=== PATIENT | male | born 1975 | race Caucasian/White ===

== ENCOUNTER 2016-09-30 20:35 | Emergency (ER) | payer SELFPAY ==
[~2016-09-30] VITALS: Ht 160 cm; Wt 77.6 kg
[2016-09-30 21:20] VITALS: BP 125/66
--- NOTE | 2016-09-30 22:23 | NUR ---
PT TAKEN TO BED 4
--- NOTE | 2016-09-30 22:54 | NUR ---
Dr. Bo evaluating patient at bedside.
--- NOTE | 2016-09-30 22:57 | NUR ---
APATIENT PRESENTS TO ED WITH BL GROIN PAIN X1WEEK . PT STATES HE HAS A PAIN IN HIS PENIS WELL WITH REDNESS AND PEELING. PT REPORTS EVERY MORNING WHEN HE WAKES UP, HE HAS A WHITE COVERING OVER HIS TONGUE . DENIES N/V/D; SKIN IS PINK/WARM/DRY; AAOX4 WITH EVEN AND STEADY GAIT; LUNGS CLEAR BL; HR EVEN AND REGULAR; PT DENIES ANY FEVER, CP, SOB, OR COUGH AT THIS TIME; PATIENT STATES PAIN OF 10/10 AT THIS TIME; VSS; PATIENT POSITIONED FOR COMFORT; HOB ELEVATED; BEDRAILS UP X2; BED DOWN. ER MD MADE AWARE OF PT STATUS.
--- NOTE | 2016-10-01 00:16 | NUR ---
Patient appears to be resting comfortably in bed. Vital Signs within normal limits. Respirations even and unlabored.
--- NOTE | 2016-10-01 01:29 | NUR ---
Patient appears to be resting comfortably in bed. Vital Signs within normal limits. Respirations even and unlabored. GAVE URINE AND ALLOWED FOR NASAL FLU SWAB TO BE DRAWN
--- NOTE | 2016-10-01 04:22 | NUR ---
Patient appears to be resting comfortably in bed. Vital Signs within normal limits. Respirations even and unlabored. PT CURRENTLY SLEEPING IN BED
[2016-10-01] MEDS ORDERED: cefTRIAXone 250 MG in LIDOCAINE 1% ED 0.9 ML IM ONE (04:45)
[2016-10-01] MEDS ORDERED: PENICILLIN G BENZATHINE L-A 2.4 MU/4 ML SYR IM ONE (04:45)
[2016-10-01 05:30] VITALS: BP 118/73
--- NOTE | 2016-10-01 05:50 | NUR ---
Patient discharged with v/s stable. Written and verbal after care instructions given and explained. Patient alert, oriented and verbalized understanding of instructions. Ambulatory with steady gait. All questions addressed prior to discharge. ID band removed. Patient advised to follow up with PMD. Rx of NYSTATIN AND AZITHROMYCIN 250MG given. Patient educated on indication of medication including possible reaction and side effects. Opportunity to ask questions provided and answered.
== END 2016-10-01 05:50 | disposition home or self-care (01) ==
LOC: MED 20:35
PROC: 3E033GC Introduction of Other Therapeutic Substance into Peripheral Vein, Percutaneous Approach (ICD-10-PCS; principal; 2016-09-30)
PROC: 4A02X4Z Measurement of Cardiac Electrical Activity, External Approach (ICD-10-PCS; 2016-09-30)
DX: B35.6 Tinea cruris (principal); A64 Unspecified sexually transmitted disease; D72.829 Elevated white blood cell count, unspecified; R73.9 Hyperglycemia, unspecified; R03.0 Elevated blood-pressure reading, without diagnosis of hypertension; I45.10 Unspecified right bundle-branch block
CPT/HCPCS: 36415; 80053; 81001; 84484; 85025; 86592; 86702; 86703; 87491; 87804; 93005; 96372; 99285; J0561; J0696; J2001

== ENCOUNTER 2016-10-11 23:30 | Emergency (ER) | payer MEDICAID ==
[~2016-10-11] VITALS: Ht 157.5 cm; Wt 78.9 kg
[2016-10-11 23:41] VITALS: BP 139/90
--- NOTE | 2016-10-12 00:08 | NUR ---
TO ER BED 7
--- NOTE | 2016-10-12 00:25 | NUR ---
41/M BIB SELF W/C/O PENILE PAIN. PATIENT STATES HE WAS HERE A COUPLE OF WEEKS AGO FOR SAME REASON; WAS TOLD HE HAD STD. WAS PRESCRIBED MEDICATION AND STATES HE IS ALMOST DONE. ; SKIN IS PINK/WARM/DRY; AAOX4 WITH EVEN AND STEADY GAIT; LUNGS CLEAR BL; HR EVEN AND REGULAR; PT DENIES ANY FEVER, CP, SOB, OR COUGH AT THIS TIME; PATIENT STATES PAIN OF 4/10 AT THIS TIME; VSS; PATIENT POSITIONED FOR COMFORT; HOB ELEVATED; BEDRAILS UP X2; BED DOWN. ER MD MADE AWARE OF PT STATUS.
--- NOTE | 2016-10-12 00:33 | NUR ---
Patient being evaluated by physician at bedside.
[2016-10-12 00:42] VITALS: BP 134/85
--- NOTE | 2016-10-12 00:43 | NUR ---
Patient discharged with v/s stable. Written and verbal after care instructions given and explained. Patient alert, oriented and verbalized understanding of instructions. Ambulatory with steady gait. All questions addressed prior to discharge. ID band removed. Patient advised to follow up with PMD. Rx of DOXYCYCLINE 100 MG, LOTRIMIN 1% given. Patient educated on indication of medication including possible reaction and side effects. Opportunity to ask questions provided and answered.
== END 2016-10-12 00:41 | disposition home or self-care (01) ==
LOC: MED 23:30
DX: B35.4 Tinea corporis (principal); L73.9 Follicular disorder, unspecified; R03.0 Elevated blood-pressure reading, without diagnosis of hypertension